=== PATIENT | male | born 2005 | race Caucasian/White ===

== ENCOUNTER 2025-01-11 21:34 | Emergency (ER) | payer OTHER ==
[~2025-01-11] VITALS: Ht 180.3 cm; Wt 89.5 kg
[2025-01-11] MEDS: dexamethasone sod phosphate 10mg/ml inj IV STA (21:57)
--- NOTE | 2025-01-11 23:00 | Physician Documentation ---
History of Present Illness ~ Chief Complaint: Allergic Reaction Stated Complaint: ALLERGIC REACTION Time Seen by MD: 21:57 OK to notify your PCP?: Yes Source: patient Mode of Arrival: POV Exam Limitations: no limitations HPI Presents with hives on face, upper arms, neck, upper chest and upper back. He reports that he had shrimp 2 hours prior to arrival and this was his 1st time having shrimp. He denies any shortness of breath, throat tightness, nausea, vomiting or chest pain. He did take 1 Benadryl prior to arrival. Medication Reconciliation Allergies: Coded Allergies: No Known Allergies (Unverified , 01/11/25) Review of Systems All Other Systems at this time: Reviewed and Negative Physical Exam Vital Signs: RN Vital Signs have been reviewed: Yes, Temperature: 98.1, Source: Oral, Heart Rate: 60, Respiratory Rate: 16, BP: 129/68, Pulse Oximetry: 98, Weight: 89.500 Pulse Oximetry Reflects: adequate oxygenation Physical Exam General: Alert, no distress. HEENT: No injection, moist mucous membranes. Posterior pharynx clear. Tonsils 2+ bilaterally. No angioedema. Uvula midline. Neck: Full range of motion. No cervical lymphadenopathy. Respiratory: No respiratory distress, equal chest rise and fall. Lungs clear bilaterally. Chest: No accessory muscle use. Cardiovascular: Regular rate and rhythm. Gastrointestinal: Nondistended. Extremities: Normal range of motion, no deformity. Neurologic: Oriented x4. Psychiatric: Normal mood and affect. Skin: Normal color, warm and dry. Progress Results/Orders Reviewed/noted all lab results: Yes Results/Orders Orders - AMADA OJEDA Saline Lock (01/11/25 ) Completed Orders - AMADA OJEDA Dexamethasone Inj (Decadron 10mg/Ml Inj) (01/11/25 21:50) Diphenhydramine Inj (Benadryl Inj.) (01/11/25 21:50) Medications Received in ER Medications (Trade) Dose Ordered Sig/Taqueria Route PRN Reason Start Time Stop Time Status Last Admin Dose Admin (Decadron 10mg/ ml inj) 10 mg ONCE STAT IV 01/11/25 21:50 01/11/25 21:51 DC 01/11/25 21:57 10 MG (Benadryl inj.) 25 mg ONCE ONCE IV 01/11/25 21:50 01/11/25 21:51 DC 01/11/25 21:58 25 MG Vital Signs 01/11/25 21:38 Temp 98.1 Pulse 60 Resp 16 B/P (MAP) 129/68 Pulse Ox 98 Medical Decision Making Additional information obtaine: family Findings He presents with diffuse hives but no airway involvement. We gave 25 mg of Benadryl IV as he had already taken 25 mg p.o. prior to arrival. Also gave Decadron IV. 45 minutes after medication administration, he states that he is feeling much better and the hives on his face have fully resolve. He does have some hives to his upper chest but the hives on the neck have resolved. His tonsils are now 1+ bilaterally on examination and posterior pharynx is clear. As this was his 1st experience with shrimp, we discussed in length that he should avoid products that contain shrimp as well as not have IV contrast dye without being pretreated 1st. I have prescribed a EpiPen for him. Was given follow up instructions as well as discharge instructions Differential Dx:Considerations: Include: Anaphylaxis, Angioedema, Bronchospasm, Contact dermatitis, Drug reaction, Latex allergy, Respiratory failure, Shock, Urticaria Departure Disposition: 01 HOME / SELF CARE / HOMELESS Impression: Primary Impression: Acute allergic reaction Condition: Stable Discharge Instructions: Hives, [id number] Additional Instructions: You have been prescribed a EpiPen. We discussed to avoid shrimp containing products as well as to not have IV contrast without being pretreated 1st. He is carry your EpiPen with you at all times. If you do end up administering the EpiPen, please go to the ER afterwards. Referrals: NO PRIMARY CARE PROVIDER (PCP) Prescriptions Epinephrine (Epipen 2-Harvey) 0.3 Mg/0.3 Ml Auto.injct 1 SYR IM ONCE PRN for allergies for 1 Day, #1 PKT 0 Refills Please administer for allergic reaction. If you use this, please go to the ER immediately. Prov: AMADA OJEDA 01/11/25 Education Educated: Patient Educated regarding: diagnosis, treatment, prognosis, need for follow up Additional Comment Medical Screen Exam This patient recieved a medical screening examination. After reviewing the individual's medical complaints with presenting symptoms and performing an appropriate physical examination, it was determined that no immediate life-t hreatening emergency medical condition is present. This individual is also not a women having contractions. Signature Scribe Signature: . Attestation: Scribed for Amada Ojeda by Amada Mcintosh NP . 01/11/25 23:05 Parts of this note were created using [employer] voice recognition software program. While efforts were made to correct any mistakes made by this voice recognition software program, nonsensical phrases may remain in this note. In addition, there may be errors and syntax, grammar, content and spelling. AMADA OJEDAP Jan 11, 2025 23:00
[2025-01-11] MEDS ORDERED: EPIN0.3P3 IM (23:03)
[2025-01-11 23:36] VITALS: BP 125/66; PULSE 58; RESP 18; TEMP 98.6; O2SAT 99
== END 2025-01-11 23:37 | disposition home or self-care (01) ==
LOC: ER 21:35
DX: T78.40XA Allergy, unspecified, initial encounter (principal); X58.XXXA Exposure to other specified factors, initial encounter
CPT/HCPCS: 96374; 96375; 99284; J1100; J1200